=== PATIENT | male | born 1960 | race Caucasian/White ===

== ENCOUNTER 2016-04-13 07:44 | Emergency (ER) | payer OTHER ==
[~2016-04-13] VITALS: Ht 172.7 cm; Wt 61.2 kg
[~2016-04-13 07:44] MED LIST: ALPRAZOLAM0.5 M1 PO; AUGMENTIN 875-1 EACH PO; AUGMENTIN 875875 MG PO; BENZONATATE200 M1 PO; CARAFATE1 GM/10 ML PO; CENTRUM SILVER1 TA1 PO; CITALOPRAM HYDR40 MG PO; LEVSIN/SL0.125 MG SL; MEDROL4 M2 PO; NASAREL 0.200 SPRAY/ NASB; PROTONIX 40MG T40 MG PO; REGLAN10 MG PO; VENTOLIN1 PUF INH; XANAX0.5 MG PO
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
[2016-04-13 08:20] LABS: ABSOLUTE BASOPHIL COUNT 0 /CUMM (0.0-0.2); ABSOLUTE EOSINOPHIL COUNT 0.1 /CUMM (0.0-0.7); ABSOLUTE GRANULOCYTE CT 3.2 /CUMM (1.4-6.5); ABSOLUTE MONOCYTE COUNT 0.5 /CUMM (0.10-0.60); BASOPHIL % 0.8 % (0.0-2.0); EOSINOPHIL % 2.7 % (0-5); GRANULOCYTE % 65.8 % (42.2-75.2); HEMATOCRIT 45.2 % (42-52); MEAN CORPUSCULAR HGB 32.7 PG (27.0-31.0); MEAN CORPUSCULAR HGB CONC 34.6 G/DL (33.0-37.0); MEAN CORPUSCULAR VOLUME 94.3 FL (80.0-94.0); MEAN PLATELET VOLUME 7.6 FL (7.4-10.4); PLATELET COUNT 236 /CUMM (130-400); RBC DISTRIBUTION WIDTH 12.5 % (11.5-14.5); WHITE BLOOD CELL COUNT 4.9 /CUMM (4.8-10.8)
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
[2016-04-13 09:17] LABS: PT 9.4 SEC (9.4-12.5); PTT 29 SEC (25-37)
--- NOTE | 2016-04-13 10:20 | RADIOLOGY REPORT ---
EXAMINATION: XR SKULL CLINICAL INFORMATION: Assess for metal for possible MRI. Left-sided weakness. COMPARISON: CT scan of the skull 10/31/[address] scan of the head earlier 04/13/2016. TECHNIQUE: AP and lateral views of the skull were obtained. FINDINGS: There has been interval replacement of the cranioplasty plate compared to the prior study. A mesh and multiple small screws are now demonstrated over the frontoparietal craniectomy defect. The screws appear to be within the calvarium around the craniectomy site. There are no free radiopaque foreign bodies. IMPRESSION: 1. The study demonstrates a cranioplasty mesh with anchoring screws over the left frontoparietal region. There will likely be susceptibility artifact from this material. 2. No loose radiopaque foreign bodies one demonstrated.
[2016-04-13 11:50] VITALS: BP 124/89
--- NOTE | 2016-04-13 12:30 | CT SCAN REPORT ---
EXAMINATION: CT CERVICAL SPINE WITHOUT CONTRAST CLINICAL INFORMATION: Left hand and arm weakness. Evaluate for disc herniation. COMPARISON: None TECHNIQUE: Noncontrast multidetector CT imaging examination of the cervical spine was performed using 0.625 mm collimation. In addition to the standard set of axial images, coronal and sagittal reformatted images were generated and reviewed. DLP: 354 mGy-cm FINDINGS: The cervical vertebra have normal density and normal height. No focal, suspicious lesions or fractures within the anterior or posterior elements. At C7-T1, there is facet arthropathy with 2 mm anterolisthesis of C7 on T1. Otherwise, vertebral alignment is maintained. No paraspinal soft tissue mass or paraspinal soft tissue swelling. Thyroid gland is unremarkable. No lymphadenopathy within the neck. The lung apices are unremarkable. SPINAL LEVELS: C1-C2: The occipital condyles, atlas, axis and atlantoaxial articulation are intact. C2-C3: Unremarkable. C3-C4: Unremarkable. C4-C5: Unremarkable. C5-C6: Minimal disc bulge and minimal uncovertebral joint hypertrophy. Central spinal canal and neural foramina are widely patent. C6-C7: Minimal disc bulge and minimal uncovertebral joint hypertrophy. Bulging disc material appears to encroach upon the inferior aspect of the left neural foramen but there is no convincing disc herniation or impingement upon the exiting nerve root. Central spinal canal and neural foramina are widely patent. C7-T1: Mild facet arthropathy with minimal anterolisthesis of C7 on T1. Central spinal canal and neural foramina are widely patent. IMPRESSION: Minimal disc bulge at C5-C6 and C6-C7. No CT imaging evidence of disc herniation. No central canal or significant neural foraminal stenosis is identified. If symptoms persist, obtain cervical spine MRI (if no contraindications to MR imaging).
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
== END 2016-04-13 12:28 ==
LOC: ERH 07:44 → ERHI 10:11 → CANBEDREQ 12:06 → ERH 12:28
PROVIDERS: Emergency Medicine
DX: G56.02 Carpal tunnel syndrome, left upper limb (principal)
CPT/HCPCS: 70250; 93005; 93010

== ENCOUNTER 2016-07-17 18:19 | Emergency (ER) | payer OTHER ==
[~2016-07-17] VITALS: Ht 170.2 cm; Wt 61.2 kg
[2016-07-17 19:05] LABS: ABSOLUTE BASOPHIL COUNT 0.1 /CUMM (0.0-0.2); ABSOLUTE EOSINOPHIL COUNT 0.1 /CUMM (0.0-0.7); ABSOLUTE GRANULOCYTE CT 5.3 /CUMM (1.4-6.5); ABSOLUTE LYMPH COUNT 1.7 /CUMM (1.2-3.4); ABSOLUTE MONOCYTE COUNT 0.5 /CUMM (0.10-0.60); BASOPHIL % 0.7 % (0.0-2.0); EOSINOPHIL % 0.9 % (0-5); GRANULOCYTE % 69.6 % (42.2-75.2); HEMATOCRIT 39.5 % (42-52); MEAN CORPUSCULAR HGB 32.3 PG (27.0-31.0); MEAN CORPUSCULAR HGB CONC 35.3 G/DL (33.0-37.0); MEAN CORPUSCULAR VOLUME 91.6 FL (80.0-94.0); MEAN PLATELET VOLUME 7.1 FL (7.4-10.4); PLATELET COUNT 267 /CUMM (130-400); RBC DISTRIBUTION WIDTH 12.4 % (11.5-14.5); RED BLOOD CELL CT 4.32 /CUMM (4.70-6.10); WHITE BLOOD CELL COUNT 7.6 /CUMM (4.8-10.8)
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
--- NOTE | 2016-07-17 20:08 | CT SCAN REPORT ---
EXAMINATION: CT ABDOMEN AND PELVIS WITH CONTRAST CLINICAL INFORMATION: Right-sided abdominal pain COMPARISON: CT January 2015 TECHNIQUE: Multidetector volumetric imaging was performed of the abdomen and pelvis before and after the IV administration 247 of 95 mL of Optiray 320 intravenous contrast. Sagittal and coronal reformatted images were obtained on the technologist's workstation. DLP: 247 mGy-cm FINDINGS: LUNG BASES: The visualized lung bases are unremarkable. LIVER, GALLBLADDER, AND BILIARY TREE: The liver is normal in size, shape, and attenuation. No focal hepatic lesion or biliary ductal dilatation is present. The gallbladder is unremarkable with no evidence of radiopaque gallstones, gallbladder wall thickening, or obvious pericholecystic inflammatory changes. PANCREAS: Unremarkable. SPLEEN: Unremarkable. ADRENAL GLANDS: Unremarkable. KIDNEYS AND URETERS: The kidneys are normal in size, shape, and attenuation. No hydronephrosis, hydroureter, or calculi seen. No perinephric stranding. BLADDER: Unremarkable. GASTROINTESTINAL TRACT: Appendix normal. Large bowel normal .small bowel normal .stomach normal ABDOMINAL WALL: No significant hernia is appreciated. LYMPH NODES: Normal. VASCULAR: Unremarkable. PELVIC VISCERA: Unremarkable. OSSEOUS STRUCTURES: Unremarkable. IMPRESSION: No acute abnormality or explanation for the patient's reported sided abdominal pain.
[2016-07-17] MEDS ORDERED: CLOTRIMAZOLE30 ML TOP (22:03)
[2016-07-17 22:12] VITALS: BP 140/79
== END 2016-07-17 22:17 ==
LOC: ERH 18:19
PROVIDERS: Physician Assistant Medical
DX: B35.4 Tinea corporis (principal); R53.83 Other fatigue; R10.11 Right upper quadrant pain
CPT/HCPCS: 86618; 74177; 93005; 93010

== ENCOUNTER 2017-09-30 07:50 | Emergency (ER) | payer OTHER ==
[~2017-09-30] VITALS: Ht 172.7 cm; Wt 59.0 kg
[~2017-09-30 07:50] MED LIST changes: +CITALOPRAM HBR40 MG PO; -CITALOPRAM HYDR40 MG PO; +CLOTRIMAZOLE30 ML TOP; +MOBIC15 M1 PO; +OMEPRAZOLE20 M3 PO; +PANTOPRAZOLE SO40 M1 PO; +PROAIR HFA8.5 GM INH; +TESSALON PERLE100 M1 PO; +TYLENOL WITH C1 EACH PO; +XANAX0.25 M1 PO; +ZOFRAN ODT4 M1 SL
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
[2017-09-30 09:14] LABS: ABSOLUTE BASOPHIL COUNT 0.1 /CUMM (0.0-0.2); ABSOLUTE EOSINOPHIL COUNT 0.1 /CUMM (0.0-0.7); ABSOLUTE GRANULOCYTE CT 2.6 /CUMM (1.4-6.5); ABSOLUTE LYMPH COUNT 1.1 /CUMM (1.2-3.4); ABSOLUTE MONOCYTE COUNT 0.4 /CUMM (0.10-0.60); BASOPHIL % 1.9 % (0.0-2.0); EOSINOPHIL % 2.3 % (0-5); GRANULOCYTE % 60.1 % (42.2-75.2); HEMATOCRIT 46.5 % (42-52); MEAN CORPUSCULAR HGB 33.4 PG (27.0-31.0); MEAN CORPUSCULAR HGB CONC 35.3 G/DL (33.0-37.0); MEAN CORPUSCULAR VOLUME 94.4 FL (80.0-94.0); MEAN PLATELET VOLUME 7.3 FL (7.4-10.4); PLATELET COUNT 293 /CUMM (130-400); RED BLOOD CELL CT 4.93 /CUMM (4.70-6.10); WHITE BLOOD CELL COUNT 4.3 /CUMM (4.8-10.8)
[2017-09-30] MEDS ORDERED: DICYCLOMINE HCL20 M1 PO (12:56)
[2017-09-30] MEDS ORDERED: REGLAN10 M1 PO (13:24)
[2017-09-30 13:32] VITALS: BP 139/92
== END 2017-09-30 13:34 ==
LOC: ERH 07:50
PROVIDERS: Emergency Medicine
DX: R10.11 Right upper quadrant pain (principal); R11.10 Vomiting, unspecified
CPT/HCPCS: 93005; 93010; 96374; 96375; J2405

== ENCOUNTER 2017-10-16 05:48 | Inpatient (IN) | payer OTHER ==
[~2017-10-16] VITALS: Ht 170.2 cm; Wt 59.0 kg
[2017-10-16] VITALS (11 sets, daily range): BP systolic 106–160; BP diastolic 63–97
[~2017-10-16 05:48] MED LIST changes: +DICYCLOMINE HCL20 M1 PO; +REGLAN10 M1 PO
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
[2017-10-16 06:29] LABS: ABSOLUTE BASOPHIL COUNT 0 /CUMM (0.0-0.2); ABSOLUTE EOSINOPHIL COUNT 0.1 /CUMM (0.0-0.7); ABSOLUTE GRANULOCYTE CT 4.6 /CUMM (1.4-6.5); ABSOLUTE LYMPH COUNT 1.4 /CUMM (1.2-3.4); ABSOLUTE MONOCYTE COUNT 0.8 /CUMM (0.10-0.60); BASOPHIL % 0.5 % (0.0-2.0); EOSINOPHIL % 0.9 % (0-5); GRANULOCYTE % 66.8 % (42.2-75.2); HEMATOCRIT 46.3 % (42-52); MEAN CORPUSCULAR HGB 32.6 PG (27.0-31.0); MEAN CORPUSCULAR HGB CONC 34.4 G/DL (33.0-37.0); MEAN CORPUSCULAR VOLUME 94.8 FL (80.0-94.0); MEAN PLATELET VOLUME 7.1 FL (7.4-10.4); PLATELET COUNT 254 /CUMM (130-400); RBC DISTRIBUTION WIDTH 12.6 % (11.5-14.5); RED BLOOD CELL CT 4.89 /CUMM (4.70-6.10); WHITE BLOOD CELL COUNT 6.8 /CUMM (4.8-10.8)
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
[2017-10-16] MEDS ORDERED: OMEPRAZOLE20 M3 PO (12:31)
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
[2017-10-17] VITALS (8 sets, daily range): BP systolic 116–143; BP diastolic 65–92
--- NOTE | 2017-10-17 09:10 | CPS PROVIDER INIT ASMT PSYCH ---
Psychiatric Admission Stationary Equipment Mechanic's Note Reviewed: Yes Patient Seen and Examined: Yes Identifying Information: "Pt is a 56 year old white male" Chief Complaint: "I'm so depressed". Reaction to Hospitalization: The patient was admitted voluntarily History of Present Illness Onset of Illness: At least since 2006. Circumstances Leading to Admission: According to Efrain Hammond [facility]'s notes of 10/16/2017: "Pt is a 56 year old white male whom drove himself to the ED this morning. Pt complaining of acute GI distress related to ETOH gastritis and depression with suicidal thoughts. Pt stated that he has been drinking beer excessively over the past three months. Pt stated that he typically drinks daily and last night had ten beers. He had a negative BAL this morning. Pt claimed he uses beer as a pain reliever for his GI discomfort. Pt also complained that his boss has been harassing, taunting and targeting him. He described the problem as very significant and distressing. He fears his boss is trying to fire him. Pt stated that he was ten years ago and now has a good relationship with his ex . Pt stated that he has two supportive adult children. Pt lives with his daughter, son in law and granddaughter. Pt's son lives independently. Pt stated that his family is very supportive. Pt stated that he graduated high school and had taken some college courses in management. 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 Pt reported that he was inpatient at [facility] seven years ago for similar symptoms of depression and suicidal thoughts. Pt explained that ten years ago following his divorce he had suicidal thoughts with a plan to shoot himself with his gun. Pt stated that at the time his responsibility to his children stopped him from doing so. Pt denied any other significant mental health treatment history. Pt stated that his PCP currently prescribes Celexa. Pt denied any other drug use other than alcohol. Pt's UDS was negative. " Problem(s) Justifying Need for Admission: The patient claimed that he was having suicidal thoughts. Past Psychiatric History Past Diagnosis(es)- if any: According to Dr. 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 Past Precipitating Factors- if any: Alcohol use - Include inpatient and outpatient treatment Treatment History: The patient was admitted to [facility]'s inpatient psychiatry Department back in 2006 and again in 2010 He denied follow-ups after his discharge in 2010 History of Suicide Attempts or Gestures The patient did not have actual suicide attempts in the past Substance Abuse History: Significant alcohol use disorder at least since 2006 Allergies: Coded Allergies: No Known Drug Allergies (Intermediate, NONE 08/11/17) Home Med List: Celexa 40 mg daily and omeprazole 20 mg daily - Include any medical condition(s) that may - impact the patient's recovery/remission Past Medical History: Gastroesophageal reflux disease and hiatal hernia Past History Medical History Neurological: TBI 1965 SEIZURES (1989 LAST) EENT: sinusitis, POST NASAL DRIP Cardiovascular: NONE Respiratory: NONE Gastrointestinal: GERD, hiatal hernia Hepatic: NONE Renal: NONE Musculoskeletal: NONE Psychiatric: alcohol dependence, anxiety, depression, PTSD Endocrine: NONE Blood Disorders: NONE Cancer(s): NONE CHANNEL 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/Reproductive: NONE History of MRSA: No History of VRE: No History of CDIFF: No Isolation History: Standard Tetanus Vaccine: 08/23/11 Surgical History Surgical History: PLATE IN HEAD CARPAL TUNNEL Psychiatric Family/Social Hx Family History Psychiatric Illness: Unexplored Substance Use: And explored Suicides: Denied Social History Living Situation: Unknown Significant Relationships (family/friends): Please see the biopsychosocial assessment by BARREL ENDSHAKER ADJUSTER Education: Please see the biopsychosocial assessment by BARREL ENDSHAKER ADJUSTER Vocation/Occupation: Patient has been working in his current job since 2000. 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 Legal: On explored [employer] Behaviors Screening Tobacco Screening Tobacco Use from ED Docu: Current Daily Use Daily Tobacco Use Amount/Type: => 5 Cigarettes daily - If tobacco counseling indicated - the following topics are required. - #1 Recognizing dangerous situations. - #2 Coping Skills. - #3 Basic information about quitting. Status of Tobacco Cessation Counseling: #1, #2 AND #3 Completed Cessation Med Status Nicotine Patch Ordered Alcohol Screening - ETOH screen POS if BAL >=80 or Audit-C>= M4/F3 Audit-C Score from Diag Assess: 10 Blood Alcohol Level: Laboratory Tests 10/17 611 Toxicology Serum Alcohol (<10 MG/DL) < 10.0 Alcohol Use Screening Results: Pos per Audit C &/or BAL - If ETOH counseling indicated - the following topics are required. - #1 Express concern about the patient's - drinking at unhealthy levels, include informing - of national norms for moderate drinking: - men <= 14 drinks/week, max 4 drinks/occasion - women <= 7 drinks/week, max 3 drinks/occasion - #2 Providing feedback, including linking alcohol to - negative physical effects (liver injury, hypertension) - negative emotional effects (relationship problems and - depression) - negative occupational consequences (reduced work - performance) - #3 Advising the patient to abstain from alcohol or - to drink below national norms for moderate drinking - (as listed above). Status of ETOH Use Counseling: #1, #2 AND #3 Completed. Metabolic Screening - Screen if on a Neuroleptic Medication - Metabolic screening should include: - Blood Pressure, BMI, Glucose or Hgb A1c, & a - Lipid profile from within the past 365 days. Metabolic Screening Not Applicable, patient not on a neuroleptic. Exam and Plan Mental Status Examination Ambulation Status: The patient was steady on his feet Appearance: Unremarkable appearance Attitude towards examiner: He was calm and cooperative Psychomotor activity: He showed normal psychomotor activity Behavior: No abnormal or bizarre behaviors Quality of speech: Normal speech Affect: Constricted affect Mood: Depressed mood Suicidal Ideation: Denied thoughts of suicide today Homicidal Ideation: Denied violent thoughts or thoughts of homicide today Hallucinations: Denied hallucination Paranoid/Delusional Material: Denied feeling paranoid, there were no delusions during the interview. Difficulties with thought organization: There was no evidence of thought disorder, the patient was coherent Insight: Partial insight Judgment: Reasonable judgment Orientation: He was alert and oriented to time, place, and person. Cognition: There were no significant difficulties with information processing Memory Function: Average Estimate of intellectual functioning: Average Assets/Strengths Patient Identified Assets/Strengths: Patient was results fold, has long employment history, and hard-working Impression/Plan Impression and Plan: 57-year-old white male who presented with depressive symptoms, suicidal ideation , and excessive recent drinking over the past 3 months. The patient works in a very hostile work environment which has affected his mental health. - Include all active medical diagnosis that require tx DSM 5 Diagnosis(es): Unspecified depressive disorder Adjustment disorder with mixed anxiety and depression and Alcohol use disorder History of a TBI - Initial Tx Plan for Active Psych & Medical Conditions Treatment Plan: Inpatient psychiatric care with safety checks every 15 minutes and Continue the detoxification protocol Replace regularly scheduled doses of Ativan with Librium Continue CIWA protocol with coverage with Ativan for breakthrough withdrawals Continue Celexa 40 mg daily - Factors that would help patient function - in a less restrictive setting. Factors: Patient will be discharge after his detoxification is completed and if he continues to have no thoughts of suicide
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
[2017-10-18 07:46] VITALS: BP 133/87
[2017-10-18 08:00] VITALS: BP 133/87; BP 151/90
--- NOTE | 2017-10-18 09:08 | CP SOUTH PROGRESS NOTE PSYCH ---
Psych (Inpt) Progress Note Progress Note Vital Signs Date Time Temp Pulse B/P B/P Pulse O2 10/18 1233 98.6 92 110/74 10/18 0800 96.0 77 133/87 10/18 0746 96.0 77 133/87 10/17 2042 98.6 97 143/65 10/17 2042 98.6 97 14365 10/17 1548 92 125/80 Mental Status Examination The patient was steady on his feet, he was calm and cooperative He showed normal psychomotor activity No abnormal or bizarre behaviors Today, he was talkative and showing a moderate thought disorder Constricted affect, Depressed mood, Denied thoughts of suicide today, Denied violent thoughts or thoughts of homicide, Denied hallucination, denied feeling paranoid, there were no specific delusions during the interview, but he was thought disordered (much more noticeable today compared to yesterday), poor insight; he was alert and oriented x 2 (place, and person. Seems to have difficulties with attention concentration and information processing today. Assessment Update: Jaciel Gross is a 57-year-old white male who presented with depressive symptoms, suicidal ideation, and excessive recent drinking over the past 3 months. The patient works in a very hostile work environment which has affected his mental health. Today, I was able to picking supervisor a significant thought disorder (no delusions) and he denies hallucinations (?) Diagnoses (Updated 10/18/2017): Unspecified Psychitic Disorder Alcohol use disorder, severe ? 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 sided rib cage pain (he's had for weeks he said) Continue CIWA protocol with coverage with Ativan for breakthrough withdrawals Continue Celexa 40 mg daily Continue CIWA protocol with coverage with Ativan for breakthrough withdrawals Continue Celexa 40 mg daily
[2017-10-18 12:33] VITALS: BP 110/74
[2017-10-18 16:01] VITALS: BP 139/84
--- NOTE | 2017-10-18 18:06 | SOCIAL WORKER PROG NOTE PSYCH ---
Social Work Progress Note Progress Note This hand sign writer met with patient. He discussed work stressors that he felt contributed to his depression and anxiety and ultimately led to this inpatient admission. He denied SI/HI/AH/VH and stated, "I get really, really depressed." Patient required frequent redirection during this conversation and appeared very focused on stress at work. He identified family members who are supportive and is agreeable to a family meeting. It has been scheduled for 10/21/17 at 3pm. 3:19pm This hand sign writer spoke with Jeanine at [facility] ([phone]) for a concurrent review. The next review is scheduled for 10/22/17 at 10:30am.
[2017-10-18 20:01] VITALS: BP 126/88
[2017-10-18 20:04] VITALS: BP 126/88
[2017-10-19 08:34] VITALS: BP 114/87
[2017-10-19 12:27] VITALS: BP 116/76
--- NOTE | 2017-10-19 13:45 | CP SOUTH PROGRESS NOTE PSYCH ---
Psych (Inpt) Progress Note Progress Note Include the following elements, when applicable: Involvement in the active treatment of the patient with behavioral observations of the patient and the patient's response to the treatment. Review of the ongoing treatment process in the context of the treatment plan. Indication of how multi-disciplinary staff members are carrying out the treatment plan. Plans for future interventions and recommendations for revision of the treatment plan. Liaison with other physicians/providers. Progress Note: Stated that he continues to have right sided rib cage pain, said it feels like there is a shovel there. He stated that he thinks it is related to his gallbladder. Overall states he is not feeling right overall. Focused on the pain, stated that nothing has ever felt this bad and perseverative about this, unable to focus on anything else (apart from his boss being a tyrant as well). He becomes somewhat disorganized later on, but no gross delusional thinking elicited. MSE: middle aged man, slim, wearing hospital clothing. No psychomotor changes, tic or tremor. His speech is normal. Mood is neutral to down, affect is full to constricted and reactive. Thought process is overall perseverative on not feeling right and his boss, tangential. Thought content without overall evidence of gross delusional statements. States that he feels terrible, that dying would be a relief, but he is not willing to kill himself and doesnt actually want to . No hallucinations and no internal preoccupation. Insight and judgment are fair to poor A: 57 year old man with history of depression, suicidal thinking and alcohol use , presents perseverative and rigid on several topics, with pain in his rib cage as his primary concern. He has not asked for pain or anxiety meds and stated that he thought his meds were making him worse, unclear if he is trying to get some other meds or if he just cant focus due to ?pain? psychosis? Anxiety? Plan: encourage interaction in the milieu, groups, using coping skills. Asked him to approach RN if he had pain and anxiety so they could be addressed, in addition to socializing, distracting self rather than repeating the thoughts about how he feels in his head over and over.
[2017-10-19 16:50] VITALS: BP 129/79
[2017-10-19 19:37] VITALS: BP 140/90
[2017-10-19 19:52] VITALS: BP 140/90
[2017-10-20 08:13] VITALS: BP 137/92
[2017-10-20 08:45] VITALS: BP 137/92
--- NOTE | 2017-10-20 08:47 | CP SOUTH PROGRESS NOTE PSYCH ---
Psych (Inpt) Progress Note Progress Note Include the following elements, when applicable: Involvement in the active treatment of the patient with behavioral observations of the patient and the patient's response to the treatment. Review of the ongoing treatment process in the context of the treatment plan. Indication of how multi-disciplinary staff members are carrying out the treatment plan. Plans for future interventions and recommendations for revision of the treatment plan. Liaison with other physicians/providers. Progress Note: Focused on his boss whom he calls a tyrant - tells a story then becomes more disorganized - "it's like the chemistry, then the cake mix,. the recipe of the [employer] don't mix... 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 Good eye contact. No psychomotor changes, no tic or tremor. His speech is regular rate and volume. His mood is neutral, affect is full and reactive. His thinking is perseverative and rigid, becomes disorganized at times today compared to yesterday. He has persecutory statements about his boss, is overly focused on this topic. No hallucinations and no internal preoccupation. Insight and judgment are fair to poor A: 57 year old man with history of depression, suicidal thinking and alcohol use , presents perseverative and rigid on several topics, with pain in his rib cage as his primary concern. He has not asked for pain or anxiety meds and stated that he thought his meds were making him worse, unclear if he is trying to get some other meds or if he just cant focus due to ?pain? psychosis? Anxiety? Plan: encourage interaction in the milieu, groups, using coping skills. Asked him to approach RN if he had pain and anxiety so they could be addressed, in addition to socializing, distracting self rather than repeating the thoughts about how he feels in his head over and over.
--- NOTE | 2017-10-20 08:47 | CP SOUTH PROGRESS NOTE PSYCH ---
Psych (Inpt) Progress Note Progress Note Include the following elements, when applicable: Involvement in the active treatment of the patient with behavioral observations of the patient and the patient's response to the treatment. Review of the ongoing treatment process in the context of the treatment plan. Indication of how multi-disciplinary staff members are carrying out the treatment plan. Plans for future interventions and recommendations for revision of the treatment plan. Liaison with other physicians/providers. Progress Note: Slept well, ate breakfast. Still has pain in rib/side, but today more focused on his boss whom he calls a tyrant - tells a story about their interactions, becoming very disorganized and perseverative - "it's like the chemistry, then the cake mix,. the recipe of the [employer] don't mix..." and continues that his boss should be, "working in a nail salon or something, I do the best job I can just because I can do things he can't do, don't harrass me..." When discussing how to resolve issues with his boss, said he will go to "HR, hourly and salary..." and some other odd statements. Does not have desire to harm boss or self, though continues to feel depressed. MSE: middle aged man, slim, well groomed, with hospital clothing on. Good eye contact. No psychomotor changes, no tic or tremor. His speech is regular rate and volume. His mood is neutral, affect is full and reactive. His thinking is perseverative and rigid, becomes disorganized at times today compared to yesterday. He has persecutory statements about his boss, is overly focused on this topic. Admits to feeling depressed but does not want to or harm anyone else, including no harm to his boss. No hallucinations and no internal preoccupation. Insight and judgment are fair to poor A: 57 year old man with history of depression, suicidal thinking and alcohol use , presents perseverative and rigid on several topics, with pain in his rib cage and his boss as his primary concerns. Today appears more disorganized overall. Has had past presentations with primarily depression, alcohol use and some personality sx. Unsure if this disorganization is decompensated depression w/ psychosis ? severe anxiety? cognitive deficits? Has trouble recalling simple points in our conversation such as med schedule, appears to be ruminating in his own thinking and not processing information provided. Risk is elevated due to ongoing sx, severe alcohol use and depressive sx history. He is future oriented, pleasant and engaged in treatment mitigating some of his risk factors, however still not stabilized sufficiently. Plan: encourage interaction in the milieu, groups, using coping skills. Asked him to approach RN if he has complaints rather than ruminating on them. Has been taking PRN ultram sometimes. Will increase olanzapine night time dose to 10mg to target disorganization d/c CIWA, has not been scoring.
[2017-10-20 19:59] VITALS: BP 162/92
[2017-10-21 08:26] VITALS: BP 128/93
--- NOTE | 2017-10-21 10:49 | CP SOUTH PROGRESS NOTE PSYCH ---
Psych (Inpt) Progress Note Progress Note I reviewed Dr. Hernandez's notes for the weekend of 10/19 and 10/20 The pt.'s progress, inpatient treatment plan, and aftercare plans were discussed in the treatment planning meeting (team members: BAO, RN; Activities Therapist, and Psychiatrist) Vital Signs Date Time Temp Pulse B/P 10/21 0826 97.1 89 128/93 10/20 195 98.1 84 162/92 Mental Status Examination: Jaciel is talkative, tangential and circumstantial. He was calm, cooperative, and showed increased psychomotor activity. There were no abnormal or bizarre behaviors. He has a moderate thought disorder, constricted affect, and depressed mood. He denied thoughts of suicide, denied violent thoughts or thoughts of homicide. Jaciel denied hallucination, denied feeling paranoid, there were no specific delusions during the interview. Jaciel was alert and orientedto place, and person. Seems to have difficulties with attention concentration and information processing today. Assessment Update: Jaciel Gross (: ) is a 57-year-old white male who was admitted on 2017 due to suicidal ideation, and excessive recent drinking over the past 3 months. The patient works in a very hostile work environment which has affected his mental health. Still has a significant thought disorder, denies hallucinations, and no specific delusions. Diagnoses (Updated 10/18/2017): Unspecified Psychitic Disorder Alcohol use disorder, severe ? 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 sided rib cage pain (he's had for weeks he said) Continue Celexa 40 mg daily Continue CIWA protocol with coverage with Ativan for breakthrough withdrawals Continue Celexa 40 mg daily
--- NOTE | 2017-10-21 17:34 | SOCIAL WORKER PROG NOTE PSYCH ---
Social Work Progress Note Progress Note Dr. Stafford, Silvia Ryan and this typewriter assembler met with the patient, his daughter (Deneen), Syl (Deneen's fiance) and his ex-, Mirian. Deneen and Syl's 2 year old daughter was also present. Deneen and Syl were approximately 15 minutes late to the meeting, which was scheduled to start at 3pm. Dr. Stafford addressed medication and medical questions and concerns. Eventual discharge plans were also reviewed, specifically IOP. Patient and his family members were agreeable to him attending IOP following CPS discharge. Patient was very fixated on work- related stress and his relationship with his boss, requiring frequent redirection. Patient's daughter appeared to be very upset about medications that were given to the patient, stating "doctors only want to give pills and not address the problem." We discussed how IOP could be effective in providing the patient with tools as well as support in managing emotions. They were also informed that medication menagement would continue to be a component of treatment through IOP. Patient and his family were informed that discharge is anticipated sometime in the next few days and once a date is identified an IOP intake will be scheduled.
[2017-10-21 19:36] VITALS: BP 152/90
[2017-10-22 02:46] VITALS: BP 137/93
[2017-10-22 08:45] VITALS: BP 130/83
--- NOTE | 2017-10-22 14:37 | CP SOUTH PROGRESS NOTE PSYCH ---
Psych (Inpt) Progress Note Progress Note Vital Signs Date Time Temp Pulse B/P 10/22 0845 96.5 95 130/83 10/22 0246 98.7 99 137/93 10/21 1936 96 152/90 Mental Status Examination: The patient was calm and cooperative. He showed normal psychomotor activity. No abnormal or bizarre behaviors. He was talkative and showing a moderate thought disorder. He was constricted affect, depressed mood, denied thoughts of suicide today, denied violent thoughts or thoughts of homicide, and denied hallucination. The patient denied feeling paranoid, there were no specific delusions during the interview, but he was thought disordered); he was alert and oriented x 2 (place, and person. Seems to have difficulties with attention concentration and information processing today. Assessment Update: 57-year-old white male who presented with depressive symptoms, suicidal ideation, and excessive recent drinking over the past 3 months. The patient works in a very hostile work environment which has affected his mental health. The patient continues to have thought disorder but he is showing relative improvement and he has not shown any major withdrawal symptoms in the past 24 hours Diagnoses (Updated 10/18/2017): ? 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 sided rib cage pain (he's had for weeks he said) Reduce Celexa to 30 mg daily
--- NOTE | 2017-10-22 17:51 | SOCIAL WORKER PROG NOTE PSYCH ---
Social Work Progress Note Progress Note This typewriter tester met with patient. He described his mood as "pretty good" and appeared less anxious that yesterday. He was also able to focus on his treatment with less distraction of work and related stressors (i.e. his boss). Patient identified the need for treatment and practicing self care: "I've got a problem being nice to me." Patient was agreeable to going to [facility] with anticipated discharge tomorrow. There is a potential for conflict regarding medications and participating with [facility]. Once this is clarified, a referral will be made. Patient was also informed of the smoking cessation group. He identified a safety plan to "go to the medical at [facility] He was also willing to accept and use the crisis numbers and warm lines upon discharge. Patient denied SI/HI/hallucinations. He plans to return home with his daughter and her fiance following discharge. He stated that her fiance would provide transportation home. This typewriter tester conducted an insurance auth with Michelle. She was informed that the patient is anticipated to discharge tomorrow. 1 additional day was authorized with next review or discharge clinical due tomorrow, 10/23/17.
[2017-10-22 19:34] VITALS: BP 162/102
[2017-10-22 23:17] VITALS: BP 156/98
[2017-10-23 07:56] VITALS: BP 119/89
[2017-10-23] MEDS ORDERED: GABAPENTIN600 M1 PO (08:11)
[2017-10-23] MEDS ORDERED: NICOTINE PATCH1 EAC2 TOP (08:11)
[2017-10-23] MEDS ORDERED: CITALOPRAM HBR20 MG PO (08:13)
[2017-10-23] MEDS ORDERED: OLANZAPINE10 M1 PO (08:15)
[2017-10-23] MEDS ORDERED: OMEPRAZOLE20 M3 PO (08:15)
--- NOTE | 2017-10-23 10:33 | Patient Discharge Instructions ---
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 Psy Discharge Secondary Diag+ Alcohol Use Disorder Summary Tests/Major Procedures Lab Cholesterol 242 MG/DL H 10/23/17 0607 Cholesterol/HDL Ratio 3 % 10/23/17 0607 HDL Cholesterol 76 mg/dL H 10/23/17 0607 Hemoglobin A1c 5.2 % 10/23/17 0607 LDL Cholesterol, Calc 106 mg/dL 10/23/17 0607 Triglycerides 303 mg/dL H 10/23/17 0607 Studies Pending at DC: None Patient Instructions Contact Information Your Psychiatrist on [facility] was Nydia TARANGO,Shravan * If you are experiencing an emergency related to this hospitalization, please call [phone] to contact the treating psychiatrist or the psychiatrist-on- call. * To Request a copy of your medical records, please contact the Medical Records Department at [phone]. * To request results of studies pending at the time of discharge, please call [phone]. * Continue your Medications until directed to stop by your Healthcare provider. General Medication Information Please continue to take your new medications and your continued home medications , unless otherwise indicated on your discharge medication list, or unless directed by your MD or STEM SETTER to stop them. Special Instructions Diet Regular Activity Normal - Tobacco Use Treatment Offered Post DC Medications Offered: Script Given-See Med List Post DC Tobacco Treatment Plan: Refused Tobacco Tx Pgm - EtOH/Drug Use D/O Treatment Offered Post DC Medications Offered: Ref Med EtOH/Drug Use D/O Post DC EtOH/SubAbuse TX Plan: [facility] SubAbuse/Dual IOP Metabolic Screening Patient on a neuroleptic(s) . Enter below results for Hemoglobin A1C, and lipid panel if obtained during the last 365 days. BMI: 20.300 Blood Pressure: 119/89 Laboratory Results From [facility] EHR (If applicable): Advance Directives Does the Patient have Medical Advance Directives Yes/Copy not provided Does Pt have Psychiatric Advance Directives? No/Refused further info Does Patient have a Designated Surrogate Decision Maker: No Information About Psychiatric Advance Directives Provided? Refused Discharge Plan Post Hospital Treatment Plan: [facility]-Dual IOP
--- NOTE | 2017-10-23 14:17 | CP SOUTH PROGRESS NOTE PSYCH ---
Psych (Inpt) Progress Note Progress Note Laboratory Tests 10/23 0607 Chemistry Hemoglobin A1c (4.2 - 5.8 %) 5.2 Triglycerides (<150 mg/dL) 303 H Cholesterol (< 200 MG/DL) 242 H LDL Cholesterol, Calc (65 - 129 mg/dL) 106 HDL Cholesterol (40 - 60 mg/dL) 76 H Cholesterol/HDL Ratio (0.00 - 4.88 %) 3 Vital Signs Date Time Temp Pulse Resp B/P B/P Pulse O2 O2 Flow FiO2 10/23 0756 97.1 98 119/89 10/22 2317 156/98 10/22 1934 97.1 100 162/102 Mental Status Examination: Jaciel was less talkative (still talkative, but less than before) He has a moderate thought disorder. He was calm and cooperative. He showed normal psychomotor activity. No abnormal or bizarre behaviors. He was constricted affect, depressed mood, denied thoughts of suicide today, denied violent thoughts or thoughts of homicide Jaciel denied hallucinations and denied feeling paranoid. There were no specific delusions during the interview; he was alert and oriented, some difficulties with attention, concentration, and information processing. Diagnoses (Updated 10/18/2017): ? 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
--- NOTE | 2017-10-23 15:18 | DISCHARGE SUMMARY REPORT-PSYCH ---
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 Consultations: Patient had a history and physical exam by the story writer. Please refer to the patient's electronic health record for the details of the H&P. Allergies: Coded Allergies: No Known Drug Allergies (Intermediate, NONE 08/11/17) Hospital Course/TX Response: 10/17/2017: Impression and Plan: 57-year-old white male who presented with depressive symptoms, suicidal ideation , and excessive recent drinking over the past 3 months. The patient works in a very hostile work environment which has affected his mental health. Diagnosis(es): Unspecified depressive disorder Adjustment disorder with mixed anxiety and depression and Alcohol use disorder History of a TBI Initial Treatment Plan: Inpatient psychiatric care with safety checks every 15 minutes and Continue the detoxification protocol Replace regularly scheduled doses of Ativan with Librium Continue CIWA protocol with coverage with Ativan for breakthrough withdrawals Continue Celexa 40 mg daily. 10/18/2017 through 10/22/2017: The patient was detoxified uneventfully using Librium with titrating doses. Patient did not have any significant withdrawal symptoms. The patient was placed on Zyprexa or olanzapine and tolerated the medication well. The Zyprexa was to target the patient's thought disorder. Throughout his stay in the hospital the patient did not have hallucinations and did not have delusions. Throughout his stay in the inpatient psychiatric unit the patient did not have thoughts of suicide or wishing . There were no violent thoughts or thoughts of homicide. On the inpatient unit, the patient did not require any seclusions or restraints and did not have any behavioral problems or agitation episodes. He was calm and cooperative and took the medications as prescribed. There was a family meeting done during the patient's hospital stay. The patient's ex- was a supportive and very reasonable. 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 The patient's daughter was pushing the issue of naturopathic remedies. The son-in-law seems to have hostility towards medications in general. The patient's son-in-law also seems to have low opinion of mental health professionals. 10/23/2017 Progress Note Laboratory Tests 10/23 Hemoglobin A1c (4.2 - 5.8 %) 5.2 Triglycerides (<150 mg/dL) 303 H Cholesterol (< 200 MG/DL) 242 H LDL Cholesterol, Calc (65 - 129 mg/dL) 106 HDL Cholesterol (40 - 60 mg/dL) 76 H Cholesterol/HDL Ratio (0.00 - 4.88 %) 3 Vital Signs Date Time Temp Pulse B/P 10/23 0756 97.1 98 119/89 10/22 2317 156/98 10/22 1934 97.1 100 162/102 Mental Status Examination: Jaciel was less talkative (still talkative, but less than before) He has a moderate thought disorder. He was calm and cooperative. He showed normal psychomotor activity. No abnormal or bizarre behaviors. He was constricted affect, depressed mood, denied thoughts of suicide today, denied violent thoughts or thoughts of homicide Jaciel denied hallucinations and denied feeling paranoid. There were no specific delusions during the interview; he was alert and oriented, some difficulties with attention, concentration, and information processing. Diagnoses (Updated 10/18/2017): ? 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 Metabolic Screening Patient on a neuroleptic(s) . Enter below results for Hemoglobin A1C, and lipid panel if obtained during the last 365 days. BMI: 20.300 Blood Pressure: 119/89 Laboratory Results From [facility] (If applicable): Lab Cholesterol 242 MG/DL H 10/23/17 0607 Cholesterol/HDL Ratio 3 % 10/23/17 0607 HDL Cholesterol 76 mg/dL H 10/23/17 0607 Hemoglobin A1c 5.2 % 10/23/17 0607 LDL Cholesterol, Calc 106 mg/dL 10/23/17 0607 Triglycerides 303 mg/dL H 10/23/17 0607 Discharge Instructions General Discharge Information Multiple Neuroleptics: Not Applicable Discharge Diet Regular Discharge Activity Normal DC Disposition: Home Referrals Ordered Referrals INTENSIVE OUTPT PSY-SUBSTANCE 10/23/[address] [place] [id number] [facility] [address], [place] [phone] IOP Intake: 10/23/17, at 1:15pm Provider Referral 10/23/17 For Providers: [[facility]] For Groups: [Smoking Cessation Group] Smoking Cessation Group [facility] [address], [place] [phone] Group meets every other Saturday at 4pm Next group: 10/23/17, at 4pm Prescriptions Stop taking the following medications: Citalopram Hydrobromide (Citalopram HBr) 40 MG TABLET ORAL DAILY Continue taking these medications: Omeprazole (Omeprazole) 20 MG TABLET. 1 Tablet ORAL DAILY Qty = 30 Comments: Last Taken:NOT GIVEN IN THE HOSPITAL Time: This prescription has been renewed Start taking the following new medications: Nicotine (Nicotine Patch) 14 MG/24 HOUR PATCH.TD24 14 Milligram On the skin DAILY Qty = 14 No Refills Comments: Last Taken:10/23/17 Time:8AM Olanzapine (Olanzapine) 10 MG TABLET 10 Milligram ORAL AT BEDTIME Qty = 15 No Refills Comments: Last Taken:10/22/17 Time:10PM Gabapentin (Gabapentin) 600 MG TABLET 1 Tablet ORAL EVERY 6 HOURS NEEDED as needed for anxiety Qty = 90 No Refills Comments: Last Taken:10/19/17 Time:1PM Citalopram Hydrobromide (Citalopram HBr) 20 MG TABLET 1 Tablet ORAL DAILY Qty = 15 No Refills Comments: Last Taken:to start this dose tomorrow 10/24/17 Time:received 30mg on 10/23/17 at 9am Studies Pending at Discharge None Copies To: Elena Thurman LCSW
--- NOTE | 2017-10-23 15:58 | SOCIAL WORKER PROG NOTE PSYCH ---
Social Work Progress Note Progress Note This technical document writer met with patient. He expressed happiness about discharging home today and denied SI/HI/hallucinations. Patient stated that he feels safe to discharge and accepted the [facility] intake for 1:15pm today. We reviewed the safety plan that was discussed yesterday and the patient accepted the crisis numbers and warm lines upon discharge. Patient requested that this technical document writer contact his daughter, Deneen, to inform of the discharge and plans to receive a ride home from her today after the intake at [facility]. Patient expressed gratitude for the treatment that he recieved on [facility]. 10:19am This technical document writer spoke with patient's daughter, Deneen Gross, by phone. She was informed of patient's discharge and she did not have any concerns about his discharging today. She stated that there are no guns in the home (which patient had also stated). She as informed that the patient would attend the [facility] intake today at 1:15pm and would complete this intake around 2pm. She agreed to provide transportation home and was provided with the address for [facility]. She was informed of the patient's safety plan and thanked this technical document writer for the call. Faxed Referral(s) Referred To: [facility] Transition of Care Documents sent: Health Summary Faxed to: [facility] Fax #: [phone] Faxed by: Wayne Nieto LCSW Date faxed: 10/23/17 Time Faxed: [phone] Comment: fax also included transfer summary and history and physical
--- NOTE | 2017-10-23 18:29 | SOCIAL WORKER PROG NOTE PSYCH ---
Social Work Progress Note Progress Note This jingle writer left discharge clinical and a request for IOP authorization for Myranda at [facility] at [phone].
== END 2017-10-23 13:13 | DRG 885 ==
LOC: ERH 05:48 → CP SOUTH 11:06 → ERHI 11:06 → ENTRNSPT 11:32 → EDTRNSPT 11:34 → EDTRNSPTSTS 11:34 → CP SOUTH 11:40 → CMPTRNSPT 11:43 → CP SOUTH 10-17 13:58
PROVIDERS: Pediatrics; Psychiatry & Neurology Psychiatry
DX: F28 Other psychotic disorder not due to a substance or known physiological condition (principal); F10.10 Alcohol abuse, uncomplicated; Z87.820 Personal history of traumatic brain injury; F17.210 Nicotine dependence, cigarettes, uncomplicated; F32.9 Major depressive disorder, single episode, unspecified; F41.9 Anxiety disorder, unspecified; F43.10 Post-traumatic stress disorder, unspecified
CPT/HCPCS: 36415; 80307; 93005; 93010; G0480; J0515; J1630; J3101; J3490